=== PATIENT | female | born 1950 | race Caucasian/White ===

== ENCOUNTER 2017-05-02 08:47 | Emergency (ER) | payer MEDICARE, SELFPAY ==
[2017-05-02 08:51] VITALS: BP 185/102; PULSE 68; RESP 15; TEMP 36.7; O2SAT 97; BMI 39.9
--- NOTE | 2017-05-02 08:59 | RAD_ITS ---
STUDY: X-RAY CHEST REASON FOR EXAM: Female, 67 years old. Chest pain for 2 days TECHNIQUE: Single view of the chest was obtained COMPARISON: None. FINDINGS: No lung consolidation, pleural effusion or pneumothorax. Widening of the mediastinum noted. Subsegmental atelectasis in the right lower lobe. Osseous structures demonstrate no acute abnormalities. Degenerative changes in the thoracic spine. RAD/Chest 1 View (Portable) IMPRESSION: Widening of the mediastinum. Please consider chest CT if there is clinical concern for aortic dissection. No pneumothorax. No definite lung consolidation. Electronically Signed: Virgil Zelaya, at 9:24 EST Tel , Service support ,
--- NOTE | 2017-05-02 08:59 | EKG12_ITS ---
Test Reason : CP Blood Pressure : / mmHG Vent. Rate : 072 BPM Atrial Rate : 072 BPM P-R Int : 114 ms QRS Dur : 088 ms QT Int : 386 ms P-R-T Axes : 031 026 042 degrees QTc Int : 422 ms Normal sinus rhythm Normal ECG Confirmed by MIHAI PEREIRA, CONY ([id number]), marketing editor MIGUEL HERNANDEZ ([id number] on 05/05/2017 2:09:16 PM Referred By: JUSTINE Confirmed By:CONY HOLM MD
--- NOTE | 2017-05-02 09:16 | ED.VISSUMM ---
- ER Visit Summary Date of Service: 05/02/17 Chief Complaint: [] Epigastric pain yesterday History of Present Illness: The patient is a 67 F [] had epigastric pain yesterday lasted for about an hour resolved on its own was not associated with diaphoresis shortness of breath or radiation. Then today at 1 AM she had another episode which he describes epigastric pain to take a baby aspirin went to bed resolved on its own. She presents today because of the above episodes. She is having no symptoms now. She has no history of ND PE DVT she has hypertension no cholesterol does not smoke, her hypertension is generally well-controlled, she has no history of GERD or reflux. The chest pain/epigastric pain is not associated with food or activity she points directly to her epigastric area as focus of pain it does not radiate to her chest resolve spontaneously her review of systems are completely negative she cannot reproduce the pain in any way and she does not know when it will strike her Physical Examination: [] She is in no distress her blood pressure is 170/80 she states she is nervous being in the emergency department generally her blood pressure is within normal range head neck unremarkable lungs are clear heart tones distant the abdomen soft obese but nontender again she points to the epigastric area and there is no pain to palpation here upper lower extremities unremarkable neurologically she is awake moving all 4 lower extremity showed no cyanosis clubbing or any obvious edema she has no history again of CAD ND PE or DVT Test Results: [] Emergency Department Course and Treatment: [] EKG labs chest x-ray generally unremarkable see those reports, radiologist mentioned mediastinum seemed wide recommended CTA to evaluate for dissection CTA was done showed nothing acute no dissection no PE on reevaluation the patient's resting comfortably she has had no pain while she has been here we did discuss inpatient versus outpatient management the long differential would certainly include epigastric pain could become from a cardiac or life-threatening cause and the fact she would need more definitive management. She understood indicates she understood all that but did not wish to be admitted preferred outpatient management she would prefer to see her physicians tomorrow and return for change in symptoms she is currently taking baby aspirin have asked her to continue doing so she does agree to return for symptoms change or intensify, and she understands the concept at this symptoms could be from a life-threatening cause but still wants to go home Treatment Plan: [] Disposition: [] declined admission Impression: [] Epigastric pain etiology unclear This note was generated with [employer] dictation software. It may contain incorrect words, spelling, and punctuation that were not noted in review of the chart prior to signing ED Disposition - Plan for ED Patient: Chief Complaint: Chest Pain Referrals: Perico Blakely MD [Primary Care Provider] -
[2017-05-02 09:23] LABS: Absolute Lymphocyte Count 1.36 X10^3/ul (0.83-4.51); Absolute Neutrophil Count 2.4 X10^3/uL (2.0-7.7); Basophil# 0.03 X10^3/uL; Basophil% 0.7 % (0-1); Eosinophil# 0.34 X10^3/uL; Eosinophils% 7.6 % (0-5); Hematocrit 37.2 % (37-47); Hemoglobin 12.5 g/dl (12.0-15.0); Lymphocyte # 1.36 X10^3/ul (4.0); Lymphocyte % 30.5 % (19-41); Mean Corp Hgb Conc 33.6 g/gl (32-36); Mean Corpuscular Hgb 30.8 pg (27.0-32.0); Mean Corpuscular Volume 91.6 fL (81-99); Mean Platelet Vol. 10.8 fl (6.2-12.0); Monocyte# 0.32 X10^3/uL; Monocyte% 7.2 % (0-10); Neutrophil # 2.41 X10^3/uL (2.7-7.7); Platelet Count 153 K/mm3 (150-450); RBC Distribution Width CV 12.4 % (11.6-14.6); RBC Distribution Width SD 41.6 fl (35.1-43.9); Red Blood Count 4.06 M/mm3 (4.2-5.4); White Blood Count 4.5 K/mm3 (4.4-11.0)
[2017-05-02 09:24] LABS: POSITIVE COUNT NO; POSITIVE DIFFERENTIAL NO; POSITIVE MORPHOLOGY NO
[2017-05-02 09:30] VITALS: O2SAT 95
[2017-05-02 09:35] LABS: Anion Gap 6 (5-15); BUN 18 mg/dL (7-18); BUN/Creat Ratio 18.4 RATIO (10-20); Calcium,Total 8.8 mg/dL (8.5-10.1); Chloride 109 mmol/L (98-107); Creatinine, Serum 0.98 mg/dL (0.55-1.02); EST Glomerular Filtration Rate 60 mL/min (>60); Est Glom Filt Rate - Afr Amer 73 mL/min (>60); Estimated Creatinine Clearance 40.01 ml/min; Glucose 97 mg/dL (74-106); Potassium 4.4 mmol/L (3.5-5.1); Sodium Level 141 mmol/L (136-145)
[2017-05-02 09:51] VITALS: BP 167/84; PULSE 53; RESP 13; O2SAT 94
[2017-05-02 09:52] LABS: BNP,B-Type NATRIURETIC PEPTIDE 76.5 pg/mL (0-100)
--- NOTE | 2017-05-02 10:01 | CT_ITS ---
STUDY: CTA CHEST REASON FOR EXAM: Female, 67 years old. Dissection. Intermittent chest pressure since Wednesday RADIATION DOSAGE (If Supplied By Facility): CTDIvol = ( 15.61 ) mGy, DLP = ( 679.46 ) mGycm TECHNIQUE: The examination was performed with the intravenous administration of 100 ml of Isovue 370 contrast material. Post-processing of the angiographic images was performed, with multiplanar reformation and 3D reconstruction. Individualized dose optimization techniques were used for this CT. COMPARISON: None. FINDINGS: No axillary or mediastinal adenopathy seen. Pulmonary artery and its branches demonstrate no evidence of filling defects to suggest pulmonary embolus. The thoracic aorta appears patent. No evidence for aortic dissection. Cardiac size is slightly prominent. Upper abdominal structures demonstrate no discrete mass. No pleural effusion, consolidation or pneumothorax seen. Degenerative changes in the thoracic spine. Mild lipomatosis of the mediastinum IMPRESSION: No evidence for aortic dissection. Thoracic spondylotic changes. No evidence for pulmonary embolus. Electronically Signed: Virgil Zelaya, at 11:27 EST Tel , Service support , CT/CTA Chest W/WO Contrast
[2017-05-02 11:18] VITALS: PULSE 61; RESP 15; O2SAT 97
--- NOTE | 2017-05-02 12:16 | ED.DEP ---
ED Disposition - Plan for ED Patient: Chief Complaint: Chest Pain Instructions: ED Chest Pain [facility] Prescriptions: Omeprazole [Prilosec] 20 mg PO DAILY #30 cap Referrals: Perico Blakely MD [Primary Care Provider] -
[2017-05-02 12:28] VITALS: BP 136/73; PULSE 58; RESP 16; O2SAT 98
== END 2017-05-02 12:31 | disposition home or self-care (01) ==
PROVIDERS: Emergency Provider Emergency Medicine; Family Provider Internal Medicine; PCP Internal Medicine
DX: R10.13 Epigastric pain (principal); I10 Essential (primary) hypertension; Z79.899 Other long term (current) drug therapy
CPT/HCPCS: 71045; 71275; 80048; 83880; 84484; 85025; 93005; 96360; 96361; 99284; J7030; J7040; Q9967; A4216